=== PATIENT | male | born 1985 | race Caucasian/White ===

== ENCOUNTER 2019-02-27 08:45 | Emergency (ER) | payer SELFPAY ==
[~2019-02-27] VITALS: Ht 182.9 cm; Wt 89.0 kg
[2019-02-27 08:52] VITALS: BP 143/84
[2019-02-27] MEDS ORDERED: KETOROLAC 30 MG/1 ML ONE (09:29)
[2019-02-27] MEDS ORDERED: KETOROLAC 30 MG/1 ML IM ONE (09:30)
--- NOTE | 2019-02-27 09:55 | NUR ---
Patient/Caregiver given discharge instructions and they have confirmed that they understand the instructions. Patient ambulatory with steady gait. pt left with all personal belongings.
== END 2019-02-27 09:56 | disposition home or self-care (01) ==
LOC: ED 09:44
DX: H65.02 Acute serous otitis media, left ear (principal)
CPT/HCPCS: 96372; 99283; J1885

== ENCOUNTER 2019-02-28 00:07 | Emergency (ER) | payer SELFPAY ==
[~2019-02-28] VITALS: Ht 182.9 cm; Wt 99.1 kg
[2019-02-28 00:09] VITALS: BP 143/89
[2019-02-28] MEDS ORDERED: LIDOCAINE-MPF 1%, 5ML ONE (00:43)
[2019-02-28] MEDS ORDERED: BUPIVACAINE 0.25% ONE (00:43)
[2019-02-28] MEDS ORDERED: BUPIVACAINE 0.25% INFIL ONE (01:00)
[2019-02-28] MEDS ORDERED: LIDOCAINE-MPF 1%, 5ML INFIL ONE (01:00)
== END 2019-02-28 01:20 | disposition home or self-care (01) ==
LOC: ED 00:33
DX: K08.89 Other specified disorders of teeth and supporting structures (principal); H65.02 Acute serous otitis media, left ear
CPT/HCPCS: 64402; 99284